=== PATIENT | male | born 1950 | race Caucasian/White ===

== ENCOUNTER → 2016-04-29 | Outpatient (CLI) | payer BC ==
--- NOTE | 2016-04-29 09:37 | DI ---
CERVICAL SPINE SERIES, 04/29/2016 8:32 AM: Clinical History: Radicular pain involving the left arm. Previous Exam: None at this facility. 5 routine upright views are submitted. The vertebral bodies are normal in height and size. There is m oderate disc space narrowing at C4-5 and severe narrowing at C5-6 through C7-T1. Anterior and posteri or bony proliferative change is present at C5-6 and C6-7. There is bilateral neural foraminal stenosi s secondary to bony spurring between C5-6 and C7-T1. There is right C4-5 neural foraminal stenosis. P osterior alignment and lateral masses are normal. C1 articulates normally with C2 and the occiput. Pr evertebral soft tissue planes are normal. Both lung apices are normal. Reading: Chronic disc space narrowing between C4-5 through C7-T1. There is right C4-5 neural foraminal stenosi s with bilateral neural foraminal stenosis between C5-6 and C7-T1.
== END ==
LOC: MOB RAD 08:33
PROVIDERS: ATTEND Physician Assistant
DX: M79.602 Pain in left arm (principal); M79.2 Neuralgia and neuritis, unspecified; M48.02 Spinal stenosis, cervical region
CPT/HCPCS: 72050

== ENCOUNTER 2016-05-15 08:46 | Day surgery (SDC) | payer BC ==
[~2016-05-15 08:46] MED LIST: LIDOCAINE W/ SODIUM BICARB 0.5 ML SYR ONE; Lactated Ringers 1,000 ML PRIMARY IV ONE
--- NOTE | 2016-05-15 10:09 | GEN.OPNOTE ---
Colonoscopy Procedure Note Surgery Date: 05/15/16 Preoperative Diagnosis: Colon cancer screening for colon cancer prevention and/ or early detection. Postoperative Diagnosis: Same. Procedure: Complete colonoscopy. Surgeon: Keven Stewart MD Anesthesia Provider: Cinthya Rodriguez CRNA Anesthesia Type: MAC Indications: Patient due for colon cancer screening. Findings: Prep : [Good] Cecum : [Normal] Ascending : [Normal] Transverse : [Normal] Sigmoid : [Normal] Rectum : [Normal] Digital Rectal Exam : [Normal. Prostate of normal size and consistency. Nonnodular.] A lubricated flexible colonoscope was inserted and passed to the blind end of the cecum. The blind end of the cecum and ileocecal valve were clearly seen. Air was aspirated as the scope was withdrawn. The entire colonoscopy was normal without polyp, tumor, neoplastic mass, infectious or inflammatory process. The scope was withdrawn completing the procedure. Patient tolerated procedure well without complication. He was taken to outpatient surgery in stable condition. Recommend follow-up colonoscopy in 10 years time.
[2016-05-15 11:21] VITALS: TEMP 97.5
[2016-05-15 11:24] VITALS: RESP 16
== END 2016-05-15 10:59 | disposition home or self-care (01) ==
LOC: SDSC 08:46
PROVIDERS: ATTEND Surgery
DX: Z12.11 Encounter for screening for malignant neoplasm of colon (principal)
CPT/HCPCS: 45378; J2704; J7120

== ENCOUNTER → 2016-06-29 | Outpatient (CLI) | payer BC ==
--- NOTE | 2016-06-29 11:12 | EKG ---
[address] [address] Measurements Intervals [place] Rate: 77 P: 67 MI: 165 QRS: 33 QRSD: 97 T: 48 QT: 398 QTc: 429 Interpretive Statements SINUS RHYTHM No previous ECG available for comparison Electronically Signed On 06-29-16 16:30:16 MDT by Kan Rockwell [email or web address]
[2016-06-29 11:33] LABS: BASOPHILS # (AUTO) 0.03 10*3/UL; BASOPHILS % (AUTO) 0.3 % (0-1); EOSINOPHILS # (AUTO) 0.04 10*3/UL; EOSINOPHILS % (AUTO) 0.3 % (0-8); HEMATOCRIT 43.4 % (42.0-52.0); MEAN CORPUSCULAR HEMOGLOBIN 29.4 PG (27-31); MEAN CORPUSCULAR HGB CONC 34.6 g/dL (33-37); MEAN CORPUSCULAR VOLUME 85.1 FL (80-90); MEAN PLATELET VOLUME 10.1 FL (7.4-12.2); MONOCYTES # (AUTO) 1.18 10*3/UL (0.3-0.8); MONOCYTES % (AUTO) 9.9 % (5-15); NEUTROPHILS % (AUTO) 74.9 % (50-80)
[2016-06-29 11:39] LABS: BLOOD UREA NITROGEN 20 mg/dL (7-22); BUN/CREATININE RATIO 22.22 (6-20); EST GLOMERULAR FILTRATION > 60 (>60 ml/min/1.73m(2))
[2016-06-29 11:40] LABS: PLATELET MORPHOLOGY COMMENT NORMAL MORPHOLOGY (NORM); RBC MORPHOLOGY COMMENT NORMAL MORPHOLOGY (NORM); WBC MORPHOLOGY COMMENT NORMAL MORPHOLOGY (NORM)
== END ==
LOC: MOB LAB 10:56
PROVIDERS: ATTEND Physician Assistant Medical
DX: R07.2 Precordial pain (principal); F41.9 Anxiety disorder, unspecified
CPT/HCPCS: 36415; 80048; 84484; 85025; 93005; 93010

== ENCOUNTER 2016-09-19 12:57 | Emergency (ER) | payer BC ==
[2016-09-19] MEDS ORDERED: Lidocaine 1% 10 MG/ML - 20 ML VIAL SUBCUT ONE (13:06)
[2016-09-19 13:16] VITALS: RESP 18
[2016-09-19] MEDS ORDERED: DIPH,PERTUSS,TET(ADACEL) VAC/PF 0.5 ML (Tdap) IM ONE (13:30)
--- NOTE | 2016-09-19 14:03 | PDOC ---
Hand / Wrist Injury HPI - General Chief Complaint: Laceration / Wound Stated Complaint: Cut Tip of Left Index Finger Date Seen by Provider: 09/19/16 Time Seen by Provider: 12:50 Source: POSITIVE: Patient, Spouse Exam Limitations: POSITIVE: No limitations Nurse's Notes Reviewed & Considered: Yes - History of Present Illness Initial Comments: The patient is a 66-year-old male. Just [employer] he was cutting some boards with a table saw. He accidentally cut the tip of his left index finger with a table saw. The laceration runs in the long axis of the finger. Last tetanus vaccination is in excess of 10 years ago. Wound carries through to the soft tissue of the nail bed and about 50% of the surface of the nail has been avulsed. Have you received a tetanus shot in the past 10 years?: No Body Location Affected: REPORTS: Upper Extremity (L) Timing: REPORTS: Abrupt (Left index finger) Duration: 1/2 hour Severity: Moderate Location at Time of Onset: REPORTS: Home Context: REPORTS: Laceration Location of Injury: REPORTS: Left, 2nd Finger Quality: REPORTS: "Pain" Modifying Factors: REPORTS: Other (Exacerbated by direct palpation) Associated Symptoms: REPORTS: Numbness Distally (Patient states he has some numbness to the distal aspect of the left index finger) - Patient Home Medications Home Medications: Home Medications Sumatriptan Succinate [Imitrex] 100 mg PO PRN PRN tab 07/25/15 [place]-3/Dha/Epa/Fish Oil [Fish Oil Ec 1,000 Mg Softgel] 1 each PO DAILY cap 10/08 Vit E AC/Vit K/Safflower Oil [Vitamin E Oil-Vitamin K] 52 ml TOPICAL 04/29/16 Ascorbic Acid [Vitamin C] 1,000 mg PO QD tab 05/01/16 Aspirin 81 mg PO DAILY tab 05/01/16 Vitamin E (Dl,Tocopheryl Acet) [Vitamin E] 1,000 unit PO QD cap 05/01/16 Gabapentin 4 cap PO TID #180 cap 05/19/16 Lisinopril/Hydrochlorothiazide [Lisinopril-Hctz 10-12.5 Mg Tab] 1 tab PO DAILY # 30 tab 06/02/16 Oxycodone HCl/Acetaminophen [Oxycodone-Acetaminophen 5-325] 2 tab PO TID PRN # 60 tab 06/02/16 Cetirizine HCl [Zyrtec] 1 tab PO QD cap 06/03/16 Lorazepam 1 tab PO TID #13 tab 06/29/16 Ondansetron [Zofran Odt] 8 mg PO TID #9 tab 06/29/16 Pantoprazole Sodium [Protonix] 1 tab PO DAILY #30 tab 06/29/16 - Patient Allergies Allergies/Adverse Reactions: Allergies Allergy/AdvReac Type Severity Reaction Status Date / Time No Known Allergies Allergy Verified 09/19/16 13:28 Past Medical History - heen HEENT History: Denies History Cardiovascular History: Hypertension Respiratory History: Denies History Additional Respiratory History: ENVIROMENTAL ALLERGIES Gastrointestinal History: Denies History Genitourinary History: Denies History Endocrine History: Denies History Musculoskeletal History: Arthritis Prosthesis or Implant: No Neurological History: Migraines Blood Disorders: Denies History Psychiatric History: Denies History History of Sexually Transmitted Diseases: No Male Reproductive History: Denies History Cancer History: Denies History In Past Year Been Physically Harmed or Verbally Threatened: No History of MDRO: No History of Other Communicable Diseases: No Tobacco Use: Never Smoker Alcohol Use: Rarely Substance Use Type: None Previous Surgical History: Yes Type / Date of Surgery: COLONOSCOPY 2006 Anesthesia Reactions: No Significant Family History: No pertinent family hx Past Medical History Reviewed: Reviewed - No Changes ROS - Limitations ROS Limitations: No Limitations Constitution: REPORTS: Denies Symptoms Cardiovascular: REPORTS: Denies Cardiac Symptoms Respiratory: REPORTS: Denies Resp Symptoms Neurological: REPORTS: Denies Neuro Symptoms Gastrointestinal: REPORTS: Denies GI Symptoms Endocrine: REPORTS: Denies Symptoms Musculoskeletal: REPORTS: Recent Injury (to tip of left index finger as above; see diagram) Genitourinary: REPORTS: Denies Symptoms Eyes: REPORTS: Denies Symptoms ENT: REPORTS: Denies Symptoms Skin: REPORTS: Other (Laceration with soft tissue avulsion and very irregular margins left index finger; see diagram.) Lympathic: REPORTS: Denies Lympathic Symptoms Immunologic: POSITIVE: Denies Symptoms Psychiatric: POSITIVE: Denies Psych Symptoms Hand / Wrist Injury Exam - General Appearance General Appearance: POSITIVE: Alert, Cooperative. NEGATIVE: No Evidence of Trauma - Extremities Upper Extremity: POSITIVE: No Evidence of FB, Normal ROM, Soft Tissue Tenderness , Partial Avulsion (partial avulsion of nail), Uninjured Above Wrist, See Diagram. NEGATIVE: Normal Inspection, Non-Tender, Swelling, Ecchymosis, Deformity, Complete Nail Injury, Limited ROM, Limited ROM d/t Pain, Ltd. ROM d/ t Funct. Def., Snuff Box Position Tender, Axial Thumb Load Pain Neurovascular / Tendon: POSITIVE: Sensation Normal, Motor Normal, No Vascular Compromise, Tendon Function Normal Skin: POSITIVE: See Diagram (irregular laceration with some avulsion of tissue and partial avulsion of the nail in long axis of left index finger) - Respiratory / CVS Respiratory / CVS: POSITIVE: Chest Non Tender, No Ecchymosis, Breath Sounds Normal, No Respiratory Distress, Heart Sounds Normal, Regular Rate/Rhythm Peripheral Pulses: Radial (R): 2+, Radial (L): 2+ Images - Hands Hand: 1 - Laceration, irregular with some loss of tissue over the nail bed and partial avulsion of nail Procedure - Laceration/Wound Repair Site of Lac/Wound:: Distal aspect left index finger Time of Suture Placement:: 13:10 Wound Length (cm): 3 Wound's Depth, Shape: Into subcutaneous tissue, Irregular, Nail-avulsed, Contused tissue Distal CMS: Yes Skin Prep: Sterile Field Maintained, Sterile Drapes Applied, Sterile Dressing Applied, Other Local Anesthesia Used - Indicate Amt Used in Comment: Lidocaine 1%: Yes Wound Explored: No foreign body removed Wound Debrided: Minimal Wound Repaired With: Sutures single layer Suture Size/Type: 4:0 Number of Sutures: 4 Layer Closure?: No Drain Placement: No Sterile Dressing Applied?: Yes Procedure Note:: After digital block anesthesia with 1% lidocaine, the macerated and irregular sawblade wound was sterilely irrigated. Easily approximated margins were approximated with 4-0 nylon suture simple interrupted stitches. Due to tissue loss, not all the margins could be approximated without losing considerable contour of the tip of the finger. This part of the laceration/avulsion was left to heal by secondary intention. Hand / Wrist Injury Progress - Patient's Progress Pain Medication Addressed: POSITIVE: Yes School/Work Release Addressed: POSITIVE: Not Applicable (recommended Advil or Tylenol) Re-Examine Time: 13:55 Re-Examine Comment: Partial primary closure completed Status: POSITIVE: Improved, Re-Examined - Consult Counseled: POSITIVE: Patient, Family, RE: DX, RE: Need for F/U Patient Care Time - Estimated PCT Patient Care Time (In Minutes): 46 Vital Signs - Recent Vital Signs Vital Signs: Vital Signs (Last 8 hours) Temp Pulse Resp BP BP Pulse Ox 09/19/16 13:01 95 18 126/90 96 09/19/16 13:00 97.6 F 95 18 126/90 96 - VS Reviewed Vital Signs Reviewed: Yes Discharge Clinical Impression: Laceration - injury Discharge Disposition: Discharged to Home Patient Instructions Given at Discharge: Laceration (ED) Additional Instructions: You have sustained a table saw laceration injury to your left index finger. This injury has resulted in loss of some soft tissue at the tip of the finger. I have loosely approximated the margins of the wound with suture, however, I did not try to tightly suture the margins of the wound together we you have lost a portion of your nail and underlying soft tissue. This part of the wound will heal gradually. This technique is more likely to maintain a normal contour of your finger the Jennifer I tried to oversew the portion of the finger with tissue loss. Please wear the dressing placed in the emergency room for 2 days. After 2 days he can gently wash the wound with soap and water and pat dry. Keep a sterile dressing on the injury. Return in 10-12 days for suture removal, or sooner at first sign of infection, or if condition worsens in every way. We have given you a tetanus booster vaccination and you should not need another tetanus shot for at least 7 years. Follow Up With: NONE,NONE [Primary Care Provider] - (Instructions as above. Return anytime at first sign of infection, or sooner if condition worsens in any way. Return in 10-12 days for reevaluation and suture removal.)
[2016-09-19 14:22] VITALS: TEMP 97.8
== END 2016-09-19 14:09 | disposition home or self-care (01) ==
LOC: ER 12:57
DX: S61.311A Laceration without foreign body of left index finger with damage to nail, initial encounter (principal); W29.8XXA Contact with other powered hand tools and household machinery, initial encounter
CPT/HCPCS: 12002; 90471; 90715; 99282